=== PATIENT | female | born 1965 | race Two or more races ===

== ENCOUNTER 2023-05-24 20:50 | Outpatient (OUT) | payer MEDICARE, MEDICAID, SELFPAY | END 2023-05-24 20:51 | disposition home or self-care (01) | LOC: SLEEP 20:50 | PROVIDERS: PCP Psychiatry & Neurology Neurology; Visit Provider Psychiatry & Neurology Neurology | DX: G47.33 Obstructive sleep apnea (adult) (pediatric) (principal) | CPT/HCPCS: 95811 ==

== ENCOUNTER 2024-10-01 12:23 | Outpatient (OUT) | payer MEDICARE, MEDICAID, SELFPAY ==
--- NOTE | 2024-10-01 14:00 | P.CN_ITS ---
Consult Note: HPI Data of Consult Patient: new to practice Consult date: 10/01/24 Requesting Physician: Lai Dallas MD Primary Care Provider: Sofia Sims NP Consult Narrative Reason for consult: neck, right arm, low back, bilateral lower extremity pain Narrative: 59yof who presents for evaluation. longstanding neck, arm, low back, lower extremity pain. no recent trauma. previously had mri from 5+ years ago, with multilevel degenerative changes. has continued in a series of provider directed home exercises >6 weeks, without benefit. uses gabapentin, muscle relaxer. denies adverse med side effect. cc:: CC: Lai Dallas MD Review of Systems ROS Status of ROS 10 or more systems reviewed and unremark able except as noted in history and below Exam Narrative Exam Narrative: Psych-alert and oriented x 3. Attentive and appropriate, constitutionally normal, displays normal mood and affect per situation. There are no obvious deficits in memory, reasoning, or intellect.? Skin-no obvious rashes, bruising, erythema noted to the patient's area of pain.? Extremities- extremities are warm with minimal edema and palpable pulses. Cervical- tenderness to palpation noted in the cervical spine and paraspinal musculature.? Pain is elicited with flexion, extension, and lateral rotation of the cervical spine.? Range of motion is diminished due to pain. Facet loading maneuvers are positive.? Strength-unremarkable and within normal limits Sensory-no notable sensory deficits in the bilateral upper extremities to touch or pinprick with the exception to decreased sensation to the bilateral C4, 5, 6 dermatomal distribution. Lumbar-tenderness to palpation noted in the lumbar spine and paraspinal musculature. Pain is elicited with flexion, extension, and lateral rotation of the lumbar spine. Range of motion is diminished with these motions. Facet l oading maneuvers are positive.? Strength-noted to be unremarkable with the exception of decreased strength rated at 4 out of 5 in bilateral quadriceps femoris, anterior tibialis. Sensory-no notable sensory deficits in the bilateral lower extremities to touch or pinprick in all dermatomal distributions with the exception to decreased sensation to the bilateral L4, 5 dermatomal distribution Coordination remains intact.? Gait remains non-antalgic. Assessment and Plan Assessment and Plan (1) Cervical stenosis of spinal canal: (2) Lumbar stenosis with neurogenic claudication: Plan 59yof who presents for evaluation. failed conservative measures, as noted. imaging reviewed, as noted. given symptoms and exam findings, will update lumbar and cervical mri without contrast. she states that she is very claustrophobic, so will order ivcs for her mris. she is in agreement. meds reviewed. will disc ontinue gabapentin and trial lyrica 200mg tid. follow up after imaging.
== END 2024-10-01 12:24 | disposition home or self-care (01) ==
PROVIDERS: Visit Provider Anesthesiology
DX: M48.02 Spinal stenosis, cervical region (principal); M48.062 Spinal stenosis, lumbar region with neurogenic claudication
CPT/HCPCS: G0463